=== PATIENT | male | born 1990 | race Caucasian/White ===

== ENCOUNTER 2023-10-02 23:21 | Emergency (ER) | payer MEDICAID ==
[~2023-10-02] VITALS: Ht 172.7 cm; Wt 109.0 kg
[2023-10-02 23:28] VITALS: O2SAT 99
[2023-10-03] MEDS: ACETAMINOPHEN 325MG TABLET PO ONE (00:07)
[2023-10-03] MEDS: MORPHINE SULFATE 4 MG/ML INJ (FOR IV/IM USE) IM ONE (00:07)
[2023-10-03] MEDS: ONDANSETRON 4MG ODT PO ONE (00:08)
[2023-10-03] MEDS ORDERED: NAPR275T96 MT (02:08)
[2023-10-03] MEDS ORDERED: METH-653 MT (02:08)
[2023-10-03 03:41] VITALS: BP 144/88; PULSE 84; RESP 20; TEMP 97.9
== END 2023-10-03 03:53 | disposition home or self-care (01) ==
LOC: ER 23:21
DX: S70.01XA Contusion of right hip, initial encounter (principal); S50.01XA Contusion of right elbow, initial encounter; X58.XXXA Exposure to other specified factors, initial encounter; Y93.89 Activity, other specified; Y92.89 Other specified places as the place of occurrence of the external cause; Y99.8 Other external cause status
CPT/HCPCS: 99285; 73502; 73080; 72131; 96372; Q0162; J2270